=== PATIENT | male | born 1985 | race Caucasian/White ===

== ENCOUNTER 2020-12-09 08:58 | Outpatient (CLI) | payer OTHER, BC | END 2020-12-09 08:59 | disposition home or self-care (01) | LOC: DTY/OP 08:58 | PROVIDERS: ATTEND Surgery | DX: E78.5 Hyperlipidemia, unspecified (principal) | CPT/HCPCS: 97802 ==

== ENCOUNTER 2021-03-22 18:00 | Outpatient (CLI) | payer OTHER | END 2021-03-22 18:01 | disposition home or self-care (01) | LOC: SLEEPLAB 18:00 | PROVIDERS: ATTEND Surgery | DX: G47.33 Obstructive sleep apnea (adult) (pediatric) (principal); R06.83 Snoring; G47.00 Insomnia, unspecified; M54.9 Dorsalgia, unspecified; G89.29 Other chronic pain; E66.9 Obesity, unspecified; Z68.42 Body mass index [BMI] 45.0-49.9, adult | CPT/HCPCS: 95806 ==

== ENCOUNTER 2022-11-02 13:31 | Outpatient (CLI) | payer OTHER | END 2022-11-02 13:32 | disposition home or self-care (01) | LOC: DTY/OP 13:31 | PROVIDERS: ATTEND Surgery | DX: E66.01 Morbid (severe) obesity due to excess calories (principal) | CPT/HCPCS: 97802 ==

== ENCOUNTER 2022-12-12 14:00 | Inpatient (IN) | payer OTHER ==
[2022-12-12 14:24] VITALS: BMI 47.9
[2022-12-19] MEDS ORDERED: Heparin 5,000 UNITS/ML VIAL ONE (06:42)
[2022-12-19] MEDS ORDERED: Bupivacaine/Epinephrine 0.25% 30 ML VIAL ONE (06:42)
[2022-12-19] MEDS ORDERED: SUGAMMADEX SODIUM 200 MG/2 ML VIAL ONE (06:50)
[2022-12-19] MEDS ORDERED: fentaNYL PF 100 MCG/2 ML SYRINGE ONE (06:50)
[2022-12-19] MEDS ORDERED: Propofol 500 MG/50 ML VIAL ONE ×2 (06:50→08:36)
[2022-12-19] MEDS ORDERED: Ketamine 50 MG/ML (10ML VIAL) ONE (06:50)
[2022-12-19] MEDS ORDERED: Scopolamine 1.5 mg/72 hour Patch ONE (07:15)
[2022-12-19] MEDS ORDERED: Sodium Chloride 0.9% 100 ML ONE (07:25)
[2022-12-19] MEDS ORDERED: CEFAZOLIN 2 GM VIAL ONE (07:25)
[2022-12-19] MEDS ORDERED: Ondansetron PF 4 MG/2 ML Vial ONE (07:39)
[2022-12-19] MEDS ORDERED: GLYCOPYRROLATE/PF 0.2 MG/ML VIAL ONE (07:39)
[2022-12-19] MEDS ORDERED: Albuterol HFA (OR) 200 PUFF INH ONE (07:39)
[2022-12-19] MEDS ORDERED: Rocuronium Bromide 10 MG/ML (10ML VIAL) ONE (07:39)
[2022-12-19] MEDS ORDERED: Lidocaine 1% PF 5 ML VIAL ONE (07:39)
[2022-12-19] MEDS ORDERED: PROPOFOL 200 MG/20 ML VIAL ONE (07:39)
[2022-12-19] MEDS ORDERED: Ketorolac Tromethamine 30 MG/ML VIAL ONE (07:39)
[2022-12-19] MEDS ORDERED: NEOSTIGMINE 3 MG/3 ML SYR 3 MG/3 ML SYRINGE ONE (07:39)
[2022-12-19] MEDS ORDERED: Promethazine HCl 25 MG/ML VIAL IM PRN ×2 (08:54→09:16)
[2022-12-19] MEDS ORDERED: Ondansetron HCl/PF 4 MG/2 ML Vial IVP PRN (08:54)
[2022-12-19] MEDS ORDERED: Dextrose 50% Abboject 50 ML SYRINGE SLOW IVP PRN (09:16)
[2022-12-19] MEDS ORDERED: Ipratropium/Albuterol 3 ML NEB NEB PRN (09:16)
[2022-12-19] MEDS ORDERED: diphenhydrAMINE 50 MG/ML VIAL IVP PRN (09:16)
[2022-12-19] MEDS ORDERED: hydrALAZINE 20 MG/ML VIAL SLOW IVP PRN (09:16)
[2022-12-19] MEDS ORDERED: Hydrocodone-Acetamin 15 ML UDCUP PO PRN (09:16)
[2022-12-19] MEDS ORDERED: Ondansetron PF 4 MG/2 ML Vial IVP PRN (09:16)
[2022-12-19] MEDS ORDERED: Glucagon 1 MG/ML KIT IM PRN (09:16)
[2022-12-19] MEDS ORDERED: Dextrose 5% in Water 1,000 ML IV PRN (09:16)
[2022-12-19] MEDS ORDERED: Fentanyl 250 MCG/5 ML VIAL ONE (09:48)
[2022-12-19] MEDS ORDERED: Promethazine HCl 25 MG/ML VIAL ONE (09:49)
[2022-12-19 12:28] LABS: HBSAg Index 0.31 S/CO (0-0.99); HIV (1/2) Antibody/Antigen Non-Reactive (NonReactive); HIV 1/2 INDEX 0.14 S/CO (<1.00); Hep B Surf Ag Non-Reactive S/CO (NonReactive); Hep C IgG Ab Non-Reactive S/CO (NonReactive); Hep C Index 0.12 S/CO (0-0.79)
[2022-12-19] MEDS: Ketorolac Tromethamine 30 MG/ML VIAL IVP SCH ×2 (12:55→18:44)
[2022-12-19] MEDS: 1/2 NS w/KCL 20 mEq 1,000 ML IV SCH ×2 (16:37→16:38)
[2022-12-19] MEDS: CEFAZOLIN 2 GM in Sodium Chloride 0.9% 100 ML IVPB SCH (16:39)
[2022-12-20] MEDS: Ketorolac Tromethamine 30 MG/ML VIAL IVP SCH ×3 (00:10→13:11)
[2022-12-20] MEDS: CEFAZOLIN 2 GM in Sodium Chloride 0.9% 100 ML IVPB SCH (00:11)
[2022-12-20] MEDS: 1/2 NS w/KCL 20 mEq 1,000 ML IV SCH ×2 (01:41→10:15)
[2022-12-20 05:44] LABS: #Monocytes 0.7 thou/uL (0.11-0.59); #Neutrophils 6.4 thou/uL (1.40-6.50); %Basophils 0.1 % (0.0-1.0); %Lymphocytes 21.3 % (21.0-51.0); %Monocytes 7.2 % (0.0-10.0); %Neutrophils 71.1 % (42.0-75.0); Hemoglobin 13.5 g/dL (14.0-18.0); Mean Corpuscular HGB CONC 33.2 g/dL (32.0-36.0); Mean Corpuscular Hemoglobin 30.1 pg (27.0-31.0); Mean Corpuscular Volume 90.6 fl (78.0-98.0); Mean Platelet Volume 9.7 fL (7.4-10.4); Platelet Count 280 10x3/uL (130-400); RBC Distribution Width 12.7 % (11.5-14.5); Red Blood Cell (RBC) Count 4.49 mill/uL (4.70-6.10); White Blood Cell (WBC) Count 9.1 10x3/uL (4.8-10.8)
[2022-12-20 06:08] LABS: Anion Gap 10 mmol/L (10-20); BUN (Urea Nitrogen) 8 mg/dL (8.9-20.6); Calc. Creatinine Clearance 257 mL/min (70-130); Calcium 8.9 mg/dL (7.8-10.44); Carbon Dioxide 26 mmol/L (22-29); Chloride 105 mmol/L (98-107); Estimated GFR 118; Glucose 97 mg/dL (70-105); Potassium 4.4 mmol/L (3.5-5.1); Sodium 137 mmol/L (136-145)
[2022-12-20] MEDS ORDERED: Pantoprazole 40 MG VIAL IVP SCH (09:00)
[2022-12-20 13:20] VITALS: BP 111/75; TEMP 98.6
== END 2022-12-20 13:53 | disposition home or self-care (01) | DRG 621 ==
LOC: SURG A 12-19 05:43
PROVIDERS: ADMIT Surgery; ATTEND Surgery
PROC: 0DB64Z3 Excision of Stomach, Percutaneous Endoscopic Approach, Vertical (ICD-10-PCS; principal; 2022-12-19)
PROC: 8E0W4CZ Robotic Assisted Procedure of Trunk Region, Percutaneous Endoscopic Approach (ICD-10-PCS; 2022-12-19)
DX: E66.01 Morbid (severe) obesity due to excess calories (principal); Z68.42 Body mass index [BMI] 45.0-49.9, adult; G89.29 Other chronic pain; E78.5 Hyperlipidemia, unspecified; G47.33 Obstructive sleep apnea (adult) (pediatric); E78.00 Pure hypercholesterolemia, unspecified; F32.A Depression, unspecified; E11.9 Type 2 diabetes mellitus without complications; Z90.49 Acquired absence of other specified parts of digestive tract; Z98.890 Other specified postprocedural states
CPT/HCPCS: 36415; 80048; 85025; 88307; 94760; C9113; J1644; J1650; J1885; J2405; J2550; J2704; J3010; J3480; J3490